=== PATIENT | male | born 1965 | race Caucasian/White ===

== ENCOUNTER → 2017-07-21 | Outpatient (CLI) | payer OTHER ==
--- NOTE | 2017-07-21 17:48 | Diagnostic Imaging Report ---
PROCEDURE:US LIVER COMPARISON:None. INDICATIONS:ELEVATED ALT FINDINGS: LIVER: Size:13.3 cm in the right midclavicular line, normal Appearance:Increased echogenicity, smooth contour Mass:No focal solid masses. Inferior left hepatic 1.2 x 1 x 1.2 cm anechoic cyst. GALLBLADDER: Stones/Sludge:None Appearance:No wall thickening, pericholecystic fluid or hydrops. Sonographic Lawrence's Sign:Negative BILE DUCTS: Intrahepatic Ducts:No dilation Extrahepatic Ducts:Common bile duct measures 0.3 cm, no dilatation. PANCREAS: Not well visualized secondary to overlying bowel gas. RIGHT KIDNEY: Size:10.8 cm in length Echogenicity:Normal Collecting System:No hydronephrosis Stone:None Cyst/Mass:None VESSELS: Aorta:Visualized portions are normal. Inferior Vena Cava:Visualized portions are normal. Main Portal Vein:0.8 cm, normal size with hepatopetal flow. FREE FLUID: No ascites or pleural effusions. CONCLUSION: Hepatic steatosis. Small left hepatic cyst. Dictated by: Ishaan Weaver M.D. on 07/21/2017 at 17:49 Electronically approved by: Ishaan Weaver M.D. on 07/21/2017 at 17:49
== END ==
LOC: US 16:29
PROVIDERS: ATTEND Internal Medicine
DX: K76.0 Fatty (change of) liver, not elsewhere classified (principal)
CPT/HCPCS: 76705

== ENCOUNTER → 2023-11-05 | Day surgery (SDC) | payer BC ==
[~2023-11-05] MED LIST: ACETAMINOPHEN325 M1 PO; ALEVE220 M1 PO; ASPIRIN81 MG PO; ATORVASTATIN CA10 MG PO; HYOSCYAMINE SULFATE 0.5 MG/ML INJ ONE; MULTIVITAMIN1 EACH PO; PROPOFOL IV EMULSION 10 MG/ML 20 ML VIAL ONE
[2023-11-05] MEDS: LACTATED RINGER'S 1,000 ML ONE (12:00)
[2023-11-05 15:05] VITALS: BP 125/88; PULSE 93; RESP 18; TEMP 97.1; O2SAT 98
== END | disposition home or self-care (01) ==
LOC: OR 11:21
PROVIDERS: ATTEND Internal Medicine Gastroenterology
DX: Z12.11 Encounter for screening for malignant neoplasm of colon (principal); D12.5 Benign neoplasm of sigmoid colon; K57.30 Diverticulosis of large intestine without perforation or abscess without bleeding; K64.8 Other hemorrhoids; G47.33 Obstructive sleep apnea (adult) (pediatric); Z01.810 Encounter for preprocedural cardiovascular examination; Z79.899 Other long term (current) drug therapy
CPT/HCPCS: 45385; 93005; J1980; J2704; J7121; 45378